=== PATIENT | male | born 1995 | race Caucasian/White ===

== ENCOUNTER 2017-11-16 19:02 | Emergency (ER) | payer OTHER ==
[2017-11-16 19:15] VITALS: RESP 18
[2017-11-16] MEDS ORDERED: IBUPROFEN 600 MG TAB PO STA (21:20)
[2017-11-16] MEDS ORDERED: DIPH,PERTUS(ACELL)TETVAC-LF 0.5 ML VIAL IM ONE (21:20)
[2017-11-16] MEDS ORDERED: LIDOCAINE 1% INJ 10MG/ML (20 ML MDV) SQ ONE (21:20)
--- NOTE | 2017-11-16 21:23 | ED ---
Wound/Laceration HPI - General Chief Complaint: Wound/Laceration Stated Complaint: lac rt arm Time Seen by Provider: 11/16/17 20:57 Source: patient Mode of arrival: ambulatory Limitations: no limitations - History of Present Illness Initial Comments: 22-year-old male patient presents to the emergency department today for evaluation of right forearm laceration. Patient states around 6 PM this evening he was replacing a wheel on a wheelbarrow when his arm was cut on the metal. Patient denies any numbness or tingling to the arm. He denies any use of anticoagulants or history of bleeding disorders. Patient states he is able to get the bleeding to stop easily. He has no difficulty with range of motion of the elbow, wrist, or the fingers. States he did take Tylenol around 6 PM. Denies any other injuries. He is unsure when his last tetanus vaccine was given. Patient denies any headache, neck pain, back pain, chest pain, shortness of breath, dizziness, weakness, abdominal pain, nausea, vomiting, or difficulties with bowel movements or urination. - Related Data Home Medications Medication Instructions Recorded Confirmed Pedi Multivit No.25/Folic Acid 1 tab PO DAILY 11/16/17 11/16/17 [Flintstones Multivit Chew Tab] Allergies Allergy/AdvReac Type Severity Reaction Status Date / Time No Known Allergies Allergy Verified 11/16/17 21:48 Review of Systems ROS Statement: Those systems with pertinent positive or pertinent negative responses have been documented in the HPI. ROS Other: All systems not noted in ROS Statement are negative. Past Medical History Past Medical History: No Reported History History of Any Multi-Drug Resistant Organisms: None Reported Past Surgical History: No Surgical Hx Reported Past Psychological History: No Psychological Hx Reported Smoking Status: Never smoker Past Alcohol Use History: None Reported Past Drug Use History: None Reported General Exam Limitations: no limitations General appearance: alert, in no apparent distress, other (This is a well- developed, well-nourished adult male patient in no acute distress. Vital signs upon presentation are temperature 98.5F, pulse 94, respirations 18, blood pressure 152/91, pulse ox 97% on room air.) Eye exam: Present: normal appearance, PERRL, EOMI. Absent: scleral icterus, conjunctival injection, periorbital swelling ENT exam: Present: normal exam, normal oropharynx, mucous membranes moist Respiratory exam: Present: normal lung sounds bilaterally. Absent: respiratory distress, wheezes, rales, rhonchi, stridor Cardiovascular Exam: Present: regular rate, normal rhythm, normal heart sounds. Absent: systolic murmur, diastolic murmur, rubs, gallop, clicks Extremities exam: Present: full ROM, normal capillary refill, other (Right dorsal forearm laceration, V-shaped approximately 5 cm in total. Remainder of skin is pink, warm, and dry. Cap refills less than 3 seconds. Radial pulses are 2+ and equal bilaterally. No visible tendon or muscle.). Absent: normal inspection, tenderness, pedal edema, joint swelling, calf tenderness Neurological exam: Present: alert, oriented X3, CN II-XII intact Psychiatric exam: Present: normal affect, normal mood Skin exam: Present: warm, dry, intact, normal color. Absent: rash Course Vital Signs 11/16/17 11/16/17 19:13 23:20 Temperature 98.5 F 98.0 F Pulse Rate 94 91 Respiratory 18 18 Rate Blood Pressure 152/91 131/82 O2 Sat by Pulse 97 98 Oximetry Procedures - Laceration Laceration #1 Consent Obtained: verbal consent Time Out Performed: Yes Indication: laceration Site: upper extremity (Right forearm) Size (cm): 5 Description: flap Depth: simple, single layer Anesthetic Used: lidocaine 1% Anesthesia Technique: local infiltration Amount (mls): 7 Pre-repair: wound explored, irrigated extensively Type of Sutures: nylon Size of Sutures: 5-0 Number of Sutures: 8 Technique: simple, interrupted (7), other (1 Corner stitch) Patient Tolerated Procedure: well, no complications Medical Decision Making - Medical Decision Making 22-year-old male patient presented to the emergency department today for evaluation of laceration to the right forearm. Physical examination revealed a 5 cm V-shaped laceration to the dorsal aspect of the right forearm. Did repair this with sutures as documented. Patient tolerated the procedure well. We did update the tetanus vaccine. He was educated regarding wound care, signs or symptoms of infection, and suture removal. Return parameters discussed in detail. Is instructed to follow-up with his primary care physician for recheck in 1-2 days. He verbalizes understanding and agrees with this plan. Disposition Clinical Impression: Laceration of right forearm Disposition: HOME SELF-CARE Condition: Good Instructions: Care For Your Stitches (ED), Laceration (ED) Additional Instructions: Cleanse laceration twice daily with warm water and antibacterial soap. Keep wound covered if you're in dirty situations. Monitor for signs or symptoms of infection including but not limited to redness, swelling, drainage of pus, fever , or chills. Return in 10-14 days to have sutures removed. Follow-up through primary care physician for recheck in 1-2 days. Return here immediately for any new, worsening, or concerning symptoms. Is patient prescribed a controlled substance at d/c from ED?: No Referrals: None,Stated [Primary Care Provider] - 1-2 days Time of Disposition: 22:58
[2017-11-16 23:21] VITALS: BP 131/82; PULSE 91; TEMP 98
== END 2017-11-16 23:21 | disposition home or self-care (01) ==
LOC: EC 19:02
DX: S51.811A Laceration without foreign body of right forearm, initial encounter (principal); Z23 Encounter for immunization; W45.8XXA Other foreign body or object entering through skin, initial encounter; Y93.89 Activity, other specified
CPT/HCPCS: 90715; 99282; 12002; 90471; J2001

== ENCOUNTER 2021-12-09 09:22 | Emergency (ER) | payer OTHER ==
[2021-12-09 09:32] VITALS: RESP 18; TEMP 98.4
[2021-12-09] MEDS ORDERED: BACITRACIN OINT 1 EACH PACKET TOPICAL ONE (09:41)
--- NOTE | 2021-12-09 10:01 | ED ---
Animal Bite HPI - General Chief Complaint: Animal Bite Stated Complaint: Dog bite, [facility] Time Seen by Provider: 12/09/21 09:35 Source: patient, RN notes reviewed Mode of arrival: ambulatory Limitations: no limitations - History of Present Illness Initial Comments: 26-year-old male presents emergency Department chief complaint of dog bite to left hand. 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 Patient is up-to-date on his tetanus in the last 5 years, patient's states the dog was up-to-date vaccinations. Patient states that he has some shortness of the hand. Patient states is minimal bleeding patient offers no complaints. - Related Data Home Medications Medication Instructions Recorded Confirmed Pedi Multivit No.25/Folic Acid 1 tab PO DAILY 11/16/17 11/16/17 [Flintstones Multivit Chew Tab] Previous Rx's Medication Instructions Recorded Amoxic-Pot Clav 875-125Mg 1 tab PO Q12HR #20 tab 12/09/21 [Augmentin 875-125] Allergies Allergy/AdvReac Type Severity Reaction Status Date / Time No Known Allergies Allergy Verified 12/09/21 09:32 Review of Systems ROS Statement: Those systems with pertinent positive or pertinent negative responses have been documented in the HPI. ROS Other: All systems not noted in ROS Statement are negative. Past Medical History Past Medical History: No Reported History History of Any Multi-Drug Resistant Organisms: None Reported Past Surgical History: No Surgical Hx Reported Past Psychological History: No Psychological Hx Reported Smoking Status: Never smoker Past Alcohol Use History: None Reported Past Drug Use History: None Reported General Exam Limitations: no limitations General appearance: alert, in no apparent distress Head exam: Present: atraumatic, normocephalic, normal inspection Respiratory exam: Present: normal lung sounds bilaterally. Absent: respiratory distress, wheezes, rales, rhonchi, stridor Cardiovascular Exam: Present: regular rate, normal rhythm, normal heart sounds. Absent: systolic murmur, diastolic murmur, rubs, gallop, clicks Extremities exam: Present: other (Left hand there are a few puncture wounds noted on the dorsal and palmar aspect with no active bleeding neurovascular intact full range of motion) Course Vital Signs 12/09/21 09:28 Temperature 98.4 F Pulse Rate 92 Respiratory 18 Rate Blood Pressure 148/86 O2 Sat by Pulse 99 Oximetry Medical Decision Making - Medical Decision Making X-ray is negative for acute abnormality. Patient has multiple puncture wounds were cleaned, bacitracin was applied patient will be discharged stable condition return parameters were discussed. Disposition Clinical Impression: Dog bite of left hand Disposition: HOME SELF-CARE Condition: Stable Instructions (If sedation given, give patient instructions): Animal Bite (ED) Additional Instructions: Please return to the Emergency Department if symptoms worsen or any other concerns. Prescriptions: Amoxic-Pot Clav 875-125Mg [Augmentin 875-125] 1 tab PO Q12HR #20 tab Is patient prescribed a controlled substance at d/c from ED?: No Referrals: Sondra Ospina MD [Primary Care Provider] - 1-2 days Time of Disposition: 10:01
--- NOTE | 2021-12-09 10:14 | XR ---
EXAMINATION TYPE: XR hand complete LT DATE OF EXAM: 12/09/2021 CLINICAL HISTORY: pain TECHNIQUE: Frontal, lateral and oblique images of the left hand are obtained. COMPARISON: None. FINDINGS: There is no acute fracture/dislocation evident. The joint spaces appear within normal limi ts. The overlying soft tissue appears unremarkable. IMPRESSION: There is no acute fracture or dislocation. ICD 10 NO FRACTURE, INITIAL EVALUATION
[2021-12-09 11:28] VITALS: BP 129/95; PULSE 91
== END 2021-12-09 11:20 | disposition home or self-care (01) ==
LOC: EC 09:22
DX: S61.432A Puncture wound without foreign body of left hand, initial encounter (principal); W54.0XXA Bitten by dog, initial encounter
CPT/HCPCS: 99283